=== PATIENT | female | born 1940 | race African-American/Black ===

== ENCOUNTER 2016-12-14 07:30 | Day surgery (SDC) | payer MEDICARE, OTHER ==
[~2016-12-14 07:30] MED LIST: PROPOFOL INJ 200 MG/20 ML VIAL IV ONE
[2016-12-14 09:05] VITALS: BP 126/63
--- NOTE | 2016-12-14 13:43 | Operative Report ---
Operative Report DATE OF SURGERY: 12/14/16 Operative Report: The risks benefits and alternatives of the procedure explained to the patient in detail and informed consent is obtained that GIF Olympus video scope was inserted into the patient's mouth and hypopharynx the esophagus is identified intubated and insufflated the scope was then advanced through the esophagus stomach and duodenum retroflexion maneuver is done the esophagus stomach and first and second portions of the duodenum examined PREOPERATIVE DIAGNOSIS: Iron deficiency anemia. Negative colonoscopy in the past POSTOPERATIVE DIAGNOSIS: Hiatal hernia. Gastritis status post biopsy rule out Helicobacter pylori. Duodenitis status post biopsy rule out celiac disease OPERATION: EGD with biopsy SURGEON: BJ CALHOUN ANESTHESIA: LMAC TISSUE REMOVED OR ALTERED: Duodenal specimens obtained. Gastric specimens obtained COMPLICATIONS: None. ESTIMATED BLOOD LOSS: none INTRAOPERATIVE FINDINGS: As described above. No gastric or duodenal ulcers noted. PROCEDURE: Patient tolerated procedure well. No immediate postprocedure complications are noted. Patient is discharged in good condition. Discharge date 12/14/2016. Discharge diet: Regular. Discharge activity: Regular. 2-3 week follow-up to discuss findings. Patient is instructed to call the office or proceed to the emergency room should there be any further problems or questions. We'll await on biopsies and treat as necessary.
== END 2016-12-14 09:06 | disposition home or self-care (01) ==
LOC: END 07:30
PROVIDERS: ATTEND Internal Medicine Gastroenterology
PROC: 0DB98ZX Excision of Duodenum, Via Natural or Artificial Opening Endoscopic, Diagnostic (ICD-10-PCS; 2016-12-14)
PROC: 0DB68ZX Excision of Stomach, Via Natural or Artificial Opening Endoscopic, Diagnostic (ICD-10-PCS; principal; 2016-12-14 08:00)
DX: K44.9 Diaphragmatic hernia without obstruction or gangrene (principal); K29.50 Unspecified chronic gastritis without bleeding; K29.80 Duodenitis without bleeding; D50.9 Iron deficiency anemia, unspecified; E78.5 Hyperlipidemia, unspecified; I10 Essential (primary) hypertension; K21.9 Gastro-esophageal reflux disease without esophagitis; E78.00 Pure hypercholesterolemia, unspecified; M81.0 Age-related osteoporosis without current pathological fracture; Z79.899 Other long term (current) drug therapy; Z79.82 Long term (current) use of aspirin
CPT/HCPCS: 43239; 88342 ×2; 88305 ×2; J2704; 740